=== PATIENT | male | born 1950 | race Caucasian/White ===

== ENCOUNTER 2023-06-17 08:16 | Outpatient (CLI) | payer BC ==
[2023-06-12 15:32] LABS: ALBUMIN 3.7 G/DL (3.4-5.0); ANION GAP 10 (8-16); BLOOD UREA NITROGEN 34 MG/DL (7-18); BUN/CREATININE RATIO 19.5 (10.0-20.0); CALCIUM 10.1 MG/DL (8.5-10.1); CHLORIDE 105 MMOL/L (99-107); CREATININE 1.74 MG/DL (0.60-1.10); GLUCOSE 220 MG/DL (70-104); SODIUM 140 MMOL/L (135-145); TOTAL CARBON DIOXIDE 24.9 MMOL/L (24-32); eGFR 39 ML/MIN
[2023-06-12 15:34] LABS: POTASSIUM 4.1 MMOL/L (3.5-5.1)
[2023-06-17] MEDS ORDERED: iohexol 350MG/ML 100ml bottle IV ONE (08:28)
[2023-06-17] MEDS ORDERED: iohexol 350 MG/ML 50ML vial IV ONE (08:28)
== END 2023-06-17 23:59 | disposition home or self-care (01) ==
LOC: RAD 08:16
PROVIDERS: ATTEND Internal Medicine Interventional Cardiology
DX: I70.213 Atherosclerosis of native arteries of extremities with intermittent claudication, bilateral legs (principal); E78.5 Hyperlipidemia, unspecified; M51.36 Other intervertebral disc degeneration, lumbar region; Z96.653 Presence of artificial knee joint, bilateral
CPT/HCPCS: 36415; 75635; 80048; J3490; Q9967

== ENCOUNTER 2023-10-05 06:34 | Day surgery (SDC) | payer BC ==
[2023-10-02 11:00] LABS: BASOPHILS # (AUTO) 0.1 X10'3 (0-0.2); BASOPHILS % (AUTO) 0.8 % (0-1); EOSINOPHILS # (AUTO) 0.1 X10'3 (0-0.9); EOSINOPHILS % (AUTO) 0.9 % (0-6); LYMPHOCYTES # (AUTO) 2.2 X10'3 (1.1-4.8); LYMPHOCYTES % (AUTO) 21.5 % (21-51); MEAN CORPUSCULAR HEMOGLOBIN 32.5 PG (27.0-31.0); MEAN CORPUSCULAR HGB CONC 33.6 g/dL (33.0-36.5); MEAN CORPUSCULAR VOLUME 96.5 FL (78-98); MEAN PLATELET VOLUME 8.5 FL (7.4-10.4); MONOCYTES # (AUTO) 0.8 X10'3 (0-0.9); MONOCYTES % (AUTO) 8.1 % (2-12); NEUTROPHILS % (AUTO) 68.7 % (42-75); PRE OP HEMATOCRIT 41.4 % (42.0-52.0); PRE OP HEMOGLOBIN 13.9 g/dL (14.0-17.9); PRE OP PLATELET COUNT 250 X10'3 (140-440); PRE OP WHITE BLOOD COUNT 10.1 10'3 (4.8-10.8); RED BLOOD COUNT 4.29 X10'6 (4.70-6.10); RED CELL DISTRIBUTION WIDTH 15.1 % (11.5-14.5)
[2023-10-02 11:11] LABS: ALBUMIN 3.8 G/DL (3.4-5.0); ALBUMIN/GLOBULIN RATIO 0.9 (1.1-1.5); ALKALINE PHOSPHATASE 58 IU/L (46-116); BLOOD UREA NITROGEN 25 MG/DL (7-18); BUN/CREATININE RATIO 14.8 (10.0-20.0); CALCIUM 10.4 MG/DL (8.5-10.1); CHLORIDE 105 MMOL/L (99-107); CREATININE 1.69 MG/DL (0.60-1.10); PRE OP ALT 20 U/L (30-65); PRE OP ANION GAP 12 (8-16); PRE OP AST 15 U/L (10-37); PRE OP BILIRUB, TOTAL 0.6 MG/DL (0.0-1.0); PRE OP GLUCOSE 115 MG/DL (70-104); PRE OP POTASSIUM 4.2 MMOL/L (3.4-5.1); PRE OP SODIUM 138 MMOL/L (135-145); TOTAL CARBON DIOXIDE 20.6 MMOL/L (24-32); eGFR 40 ML/MIN
[2023-10-05] VITALS (12 sets, daily range): BP systolic 130–150; BP diastolic 73–89; PULSE 60–76; RESP 10–16; TEMP 97.6; O2SAT 94–100
[~2023-10-05] VITALS: Ht 177.8 cm; Wt 93.9 kg
[~2023-10-05 06:34] MED LIST: ACAR100T2 PO; APIX5TAB3 PO; ATOR10TA70 PO; FENO67CA14 PO; GLIP5TAB23; LINA5TAB4 PO; LISI10TA27 PO; POTA8TAB69; [UNRECOGNIZED DRUG - CODE]
[2023-10-05] MEDS ORDERED: BUPIVAcaine/PF 2.5mg/ml (0.25%) 10ml vial ONE (06:52)
[2023-10-05] MEDS: famotidine 20mg tablet PO ONE (07:09)
[2023-10-05] MEDS: ringers solution, lacted 1,000 ML IV SCH (07:09)
[2023-10-05] MEDS ORDERED: cefazolin 2gm/D5W 100mL 100 ML IV ONE (07:11)
[2023-10-05] MEDS ORDERED: famotidine 20mg tablet PO ONE (07:11)
[2023-10-05] MEDS: BUPIVAcaine/PF 2.5mg/ml (0.25%) 10ml vial ONE (07:33)
[2023-10-05] MEDS ORDERED: fentaNYL/PF 50MCG/1 ML 2ML syringe ONE (08:19)
[2023-10-05] MEDS ORDERED: midazolam 1 mg/ML 2ml injection ONE (08:20)
[2023-10-05] MEDS ORDERED: proCHLORperazine 10 MG/2 ml inj IV PRN (08:25)
[2023-10-05] MEDS ORDERED: morphine 4 MG/ML inj SYRINge IV PRN (08:25)
[2023-10-05] MEDS ORDERED: fentaNYL/PF 50MCG/1 ML 2ML syringe IV PRN ×2 (08:25)
[2023-10-05] MEDS ORDERED: morphine 2 MG/ML inj. syringe IV PRN (08:25)
[2023-10-05] MEDS ORDERED: ringers solution, lacted 1,000 ML IV SCH (08:25)
[2023-10-05] MEDS ORDERED: acetaminophen 1,000mg/100ml IV 100 ML IV ONE (08:25)
[2023-10-05] MEDS ORDERED: ondansetron/PF 4mg/2ml inj IV PRN (08:25)
[2023-10-05] MEDS ORDERED: propofol inj 20 ML IV ONE (08:38)
[2023-10-06] MEDS ORDERED: ringers solution, lacted 1,000 ML IV SCH (05:30)
== END 2023-10-05 10:12 | disposition home or self-care (01) ==
LOC: PAS 06:34
PROVIDERS: ATTEND Orthopaedic Surgery Hand Surgery
DX: G56.01 Carpal tunnel syndrome, right upper limb (principal); M65.331 Trigger finger, right middle finger; I10 Essential (primary) hypertension; E11.9 Type 2 diabetes mellitus without complications; I48.91 Unspecified atrial fibrillation; Z85.828 Personal history of other malignant neoplasm of skin; Z85.038 Personal history of other malignant neoplasm of large intestine; Z79.01 Long term (current) use of anticoagulants; Z79.84 Long term (current) use of oral hypoglycemic drugs; Z79.899 Other long term (current) drug therapy; Z90.49 Acquired absence of other specified parts of digestive tract; Z96.653 Presence of artificial knee joint, bilateral; Z98.890 Other specified postprocedural states
CPT/HCPCS: 26055; 36415; 64721; 80053; 82948; 85025; J0690; J2250; J2704; J3010; J3490; J7030; J7120; Z7506; Z7512; A4215; A6449

== ENCOUNTER 2023-11-02 05:35 | Day surgery (SDC) | payer BC ==
[2023-10-26 11:44] LABS: BASOPHILS # (AUTO) 0.1 X10'3 (0-0.2); BASOPHILS % (AUTO) 0.7 % (0-1); EOSINOPHILS # (AUTO) 0.1 X10'3 (0-0.9); LYMPHOCYTES # (AUTO) 2.7 X10'3 (1.1-4.8); LYMPHOCYTES % (AUTO) 25.7 % (21-51); MEAN CORPUSCULAR HEMOGLOBIN 32.7 PG (27.0-31.0); MEAN CORPUSCULAR HGB CONC 33.8 g/dL (33.0-36.5); MEAN CORPUSCULAR VOLUME 96.8 FL (78-98); MEAN PLATELET VOLUME 7.9 FL (7.4-10.4); MONOCYTES % (AUTO) 9.2 % (2-12); NEUTROPHILS # (AUTO) 6.7 X10'3 (1.8-7.7); NEUTROPHILS % (AUTO) 63.4 % (42-75); PRE OP HEMATOCRIT 43.1 % (42.0-52.0); PRE OP HEMOGLOBIN 14.6 g/dL (14.0-17.9); PRE OP PLATELET COUNT 308 X10'3 (140-440); PRE OP WHITE BLOOD COUNT 10.5 10'3 (4.8-10.8); RED BLOOD COUNT 4.45 X10'6 (4.70-6.10); RED CELL DISTRIBUTION WIDTH 15.5 % (11.5-14.5)
[2023-10-26 12:05] LABS: ALBUMIN 3.7 G/DL (3.4-5.0); ALBUMIN/GLOBULIN RATIO 0.9 (1.1-1.5); ALKALINE PHOSPHATASE 58 IU/L (46-116); BLOOD UREA NITROGEN 23 MG/DL (7-18); BUN/CREATININE RATIO 13.1 (10.0-20.0); CALCIUM 10.2 MG/DL (8.5-10.1); CHLORIDE 105 MMOL/L (99-107); CREATININE 1.75 MG/DL (0.60-1.10); PRE OP ALT 31 U/L (30-65); PRE OP ANION GAP 10 (8-16); PRE OP AST 14 U/L (10-37); PRE OP BILIRUB, TOTAL 0.6 MG/DL (0.0-1.0); PRE OP GLUCOSE 83 MG/DL (70-104); PRE OP POTASSIUM 4.2 MMOL/L (3.4-5.1); PRE OP SODIUM 142 MMOL/L (135-145); TOTAL CARBON DIOXIDE 27.4 MMOL/L (24-32); eGFR 39 ML/MIN
[~2023-11-02] VITALS: Ht 177.8 cm; Wt 97.7 kg
[2023-11-02] VITALS (7 sets, daily range): BP systolic 126–144; BP diastolic 74–89; PULSE 59–79; RESP 9–16; TEMP 97.7; O2SAT 96–99
[2023-11-02] MEDS: cefazolin 2gm/D5W 100mL 100 ML IV ONE (05:59)
[2023-11-02] MEDS: famotidine 20mg tablet PO ONE (06:15)
[2023-11-02] MEDS: ringers solution, lacted 1,000 ML IV SCH (06:15)
[2023-11-02] MEDS ORDERED: LIDOcaine 1% (10mg/ml)w/preservative inj. 20ml MDV ONE (06:56)
[2023-11-02] MEDS ORDERED: BUPIVAcaine/PF 2.5mg/ml (0.25%) 10ml vial ONE (06:56)
[2023-11-02] MEDS ORDERED: fentaNYL/PF 50MCG/1 ML 2ML syringe ONE (07:42)
[2023-11-02] MEDS ORDERED: morphine 4 MG/ML inj SYRINge IV PRN (07:50)
[2023-11-02] MEDS ORDERED: morphine 2 MG/ML inj. syringe IV PRN (07:50)
[2023-11-02] MEDS ORDERED: ondansetron/PF 4mg/2ml inj IV PRN (07:50)
[2023-11-02] MEDS ORDERED: ringers solution, lacted 1,000 ML IV SCH (07:50)
[2023-11-02] MEDS ORDERED: meperidine/PF 25mg/ml syringe IV PRN ×3 (07:50)
[2023-11-02] MEDS ORDERED: proCHLORperazine 10 MG/2 ml inj IV PRN (07:50)
[2023-11-02] MEDS ORDERED: midazolam 1 mg/ML 2ml injection ONE (07:59)
[2023-11-02] MEDS ORDERED: propofol inj 20 ML IV ONE (07:59)
[2023-11-02] MEDS: LIDOcaine 1%/PF 5ML 10 MG/ML VIAL IJ ONE (08:01)
[2023-11-02] MEDS: acetaminophen 1,000mg/100ml IV 100 ML IV ONE (08:43)
== END 2023-11-02 09:08 | disposition home or self-care (01) ==
LOC: PAS 05:35
PROVIDERS: ATTEND Orthopaedic Surgery Hand Surgery
DX: G56.02 Carpal tunnel syndrome, left upper limb (principal); I12.9 Hypertensive chronic kidney disease with stage 1 through stage 4 chronic kidney disease, or unspecified chronic kidney disease; E11.22 Type 2 diabetes mellitus with diabetic chronic kidney disease; N18.30 Chronic kidney disease, stage 3 unspecified; I48.91 Unspecified atrial fibrillation; M10.9 Gout, unspecified; I20.9 Angina pectoris, unspecified; I25.2 Old myocardial infarction; Z79.01 Long term (current) use of anticoagulants; Z79.84 Long term (current) use of oral hypoglycemic drugs; Z79.899 Other long term (current) drug therapy; Z90.49 Acquired absence of other specified parts of digestive tract; Z96.653 Presence of artificial knee joint, bilateral; Z98.890 Other specified postprocedural states; Z83.3 Family history of diabetes mellitus; Z82.49 Family history of ischemic heart disease and other diseases of the circulatory system
CPT/HCPCS: 36415; 64721; 80053; 82948; 85025; J0131; J0690; J2250; J2704; J3010; J3490; J7030; J7120; Z7506; Z7512; A4215; A6449; S0020